=== PATIENT | female | born 2000 | race African-American/Black ===

== ENCOUNTER 2019-11-29 12:00 | Day surgery (SDC) | payer OTHER ==
[2019-11-29 12:49] VITALS: BMI 42.7
[2019-11-29 12:56] LABS: #Eosinphils 0.1 thou/uL (0.0-0.7); #Lymphocytes 1.2 thou/uL (1.20-3.40); #Monocytes 0.5 thou/uL (0.11-0.59); #Neutrophils 5.7 thou/uL (1.40-6.50); %Basophils 0.6 % (0.0-1.0); %Eosinophils 0.8 % (0.0-10.0); %Lymphocytes 16.1 % (28.0-48.0); %Monocytes 6.4 % (0.0-4.0); Hemoglobin 11.7 g/dL (12.0-16.0); Mean Corpuscular Hemoglobin 28.2 pg (25.0-35.0); Mean Corpuscular Volume 85.5 fL (78.0-98.0); Mean Platelet Volume 8.5 fL (7.4-10.4); Platelet Count 228 thou/uL (130-400); RBC Distribution Width 12.9 % (11.5-14.5); Red Blood Cell (RBC) Count 4.15 mill/uL (4.00-5.20); White Blood Cell (WBC) Count 7.5 thou/uL (4.8-10.8)
[2019-11-29 13:15] LABS: ALT (SGPT) 9 U/L (8-55); AST (SGOT) 14 U/L (5-34); Albumin 3.5 g/dL (3.5-5.0); Alkaline Phosphatase 265 U/L (40-100); Anion Gap 15 mmol/L (10-20); BUN (Urea Nitrogen) 8 mg/dL (7.0-18.7); Bilirubin, Total 0.2 mg/dL (0.2-1.2); Calc. Creatinine Clearance 292 mL/min (70-130); Calcium 9.4 mg/dL (7.8-10.44); Carbon Dioxide 17 mmol/L (22-29); Chloride 109 mmol/L (98-107); Estimated GFR-MDRD Greater than 90; Globulin 3.2 g/dL (2.4-3.5); Glucose 78 mg/dL (70-105); Potassium 4.1 mmol/L (3.5-5.1); Protein, Total 6.7 g/dL (6.0-8.3); Sodium 137 mmol/L (136-145)
--- NOTE | 2019-11-29 15:01 | PDOC.LDHP ---
Labor and Delivery H&P Allergies/Adverse Reactions: Allergies Allergy/AdvReac Type Severity Reaction Status Date / Time No Known Allergies Allergy Verified 11/29/19 12:51
[2019-11-30] MEDS ORDERED: FLU VACC QS2019-20(6MOS UP)/PF 60 MCG/0.5 ML SYRINGE IM ONE (09:00)
== END 2019-11-29 15:26 | disposition home health service (06) ==
LOC: L&D/OP 12:00
PROVIDERS: ATTEND Student in an Organized Health Care Education/Training Program
DX: O16.9 Unspecified maternal hypertension, unspecified trimester (principal); Z3A.39 39 weeks gestation of pregnancy; Z79.82 Long term (current) use of aspirin; Z79.899 Other long term (current) drug therapy
CPT/HCPCS: 36415; 80053; 82570; 84156; 85025

== ENCOUNTER 2019-11-29 15:03 | Inpatient (IN) | payer OTHER ==
[2019-11-29] MEDS ORDERED: Ibuprofen 800 MG TAB PO PRN (20:24)
[2019-11-29] MEDS ORDERED: Promethazine HCl 25 MG/ML VIAL IM PRN (20:24)
[2019-11-29] MEDS ORDERED: Lidocaine 1% (PF) 30 ML VIAL SC PRN (20:24)
[2019-11-29] MEDS ORDERED: Diphenoxylate HCl/Atropine Tablet PO PRN ×2 (20:24)
[2019-11-29] MEDS ORDERED: hydrALAZINE 20 MG/ML VIAL SLOW IVP PRN (20:24)
[2019-11-29] MEDS ORDERED: HYDROcodone/Acetaminophen 5/325 mg Tablet PO PRN ×2 (20:24)
[2019-11-29] MEDS ORDERED: NS / Oxytocin 40 units/1000ml 1,000 ML IV PRN (20:24)
[2019-11-29] MEDS ORDERED: Ondansetron PF 4 MG/2 ML Vial IVP PRN (20:24)
[2019-11-29] MEDS ORDERED: Carboprost 250 MCG/ML AMP IM PRN (20:24)
[2019-11-29] MEDS ORDERED: Misoprostol 200 MCG TAB PR PRN (20:24)
[2019-11-29] MEDS ORDERED: NS w/ Oxytocin 10 units 500 ML IV SCH (20:30)
[2019-11-29] MEDS ORDERED: Lactated Ringer's 1,000 ML IV SCH (20:30)
[2019-11-29 20:52] LABS: Hemoglobin 11.7 g/dL (12.0-16.0); Mean Corpuscular HGB CONC 32.8 g/dL (32.0-36.0); Mean Corpuscular Hemoglobin 28.1 pg (25.0-35.0); Mean Corpuscular Volume 85.7 fL (78.0-98.0); Mean Platelet Volume 8.6 fL (7.4-10.4); Platelet Count 242 thou/uL (130-400); RBC Distribution Width 12.9 % (11.5-14.5); Red Blood Cell (RBC) Count 4.15 mill/uL (4.00-5.20); White Blood Cell (WBC) Count 8.5 thou/uL (4.8-10.8)
[2019-11-29] MEDS ORDERED: Penicillin G Potassium 5 MILL.UNITS in Sodium Chloride 0.9% 100 ML IVPB SCH (21:00)
[2019-11-29] MEDS: Misoprostol 100 MCG TAB PO SCH (21:09)
[2019-11-29 21:29] LABS: Syphilis Antibody Nonreactive (Nonreactive); Syphilis Antibody Index 0.04 S/CO (<1.00 Non-Reactive)
[2019-11-29 21:33] VITALS: BMI 42.7
[2019-11-29 23:18] LABS: HBSAg Index 0.22 S/CO (0-0.99); Hep B Surf Ag Non-Reactive S/CO (NonReactive)
[2019-11-30] MEDS: Misoprostol 100 MCG TAB PO SCH ×2 (01:09→05:00)
[2019-11-30] MEDS: Pen G 2.5 MILL.UNITS/50 ML BAG IVPB SCH ×5 (01:10→17:59)
[2019-11-30] MEDS ORDERED: Butorphanol Tartrate 1 MG/ML VIAL ONE (05:27)
[2019-11-30] MEDS ORDERED: Butorphanol Tartrate 1 MG/ML VIAL SLOW IVP PRN (05:28)
[2019-11-30] MEDS ORDERED: Fentanyl 4 mcg/Bup 0.1% Cadd 100 ML ONE (13:20)
[2019-11-30] MEDS ORDERED: Fentanyl 100 MCG/2 ML VIAL ONE (14:01)
[2019-11-30] MEDS ORDERED: Ondansetron PF 4 MG/2 ML Vial IVP PRN (14:42)
[2019-11-30] MEDS ORDERED: Acetaminophen 325 MG TAB PO PRN (14:42)
[2019-11-30] MEDS ORDERED: EPHEDRINE 25 MG/5 ML SYRINGE SLOW IVP PRN (14:42)
[2019-11-30] MEDS ORDERED: diphenhydrAMINE 50 MG/ML VIAL IVP PRN (14:42)
[2019-11-30] MEDS ORDERED: Promethazine HCl 25 MG/ML VIAL IM PRN (14:42)
[2019-11-30] MEDS ORDERED: Naloxone HCl 0.4 mg/ml Vial IVP PRN ×2 (14:42)
[2019-11-30] MEDS ORDERED: Lactated Ringer's 500 ML IV PRN (14:42)
[2019-11-30] MEDS ORDERED: Communication Order-Pharmacy FS SCH (14:45)
[2019-11-30] MEDS ORDERED: Fentanyl 4 mcg/Bupivacaine 0.1% Cassette 100 ML EPIDURAL SCH (14:45)
--- NOTE | 2019-11-30 16:37 | PDOC.LDHP ---
Labor and Delivery H&P Chief complaint: scheduled induction HPI: patient is here for Elective induction of labor Current gestational age (weeks): 39 Dating criteria: first trimester ultrasound Grav: 1 Para: 0 Current complications: none Past Medical History: Obesity Current medications: pre- vitamins, other (aspirin) Previous surgical history: none Allergies/Adverse Reactions: Allergies Allergy/AdvReac Type Severity Reaction Status Date / Time No Known Allergies Allergy Verified 11/29/19 12:51 Social history: none - Physical Exam Vital signs reviewed and normal: yes General: NAD, resting Lungs: nonlabored breathing Abdomen: gravid FHT: category 1 - Vaginal Exam cm dilated: 3 Effacement: 90% Station: -1 - OB Labs Blood type: O RH: negative Antibody Screen: negative HIV: negative RPR: negative HEPSAg: negative 1 hour GCT: negative GBS: positive Urine drug screen: negative Rubella: immune - Assessment L&D Assessment: elective induction at term - Plan Plan: admit to L&D, cervical ripening, GBS antibiotic prophylaxis, informed consent obtained, anesthesia consult for pain management -: Pitocin was discontinued at 1450 due to hyperstimulation and late decels.
[2019-11-30] MEDS ORDERED: Lidocaine 1% (PF) 30 ML VIAL ONE (21:10)
--- NOTE | 2019-11-30 22:24 | PDOC.OPDEL ---
OB Operative/Delivery Note Delivery Dr/Surgeon: Light. Abraham Pre-Delivery Diagnosis: elective induction Procedure/Post Delivery Dx: spontaneous vaginal delivery Weeks gestation: 39 Anesthesia: epidural - Findings A Sex: female Weight: 7 lb 10 oz - 1 min: 8 - 5 min: 9 - Additional Findings/Plan Placenta delivered: spontaneous Repaired Obstetrical Laceration: 1st degree Estimated blood loss: 300mL Post delivery plan: routine recovery
[2019-12-01] MEDS ORDERED: Bisacodyl 10 MG SUPP PR PRN (00:22)
[2019-12-01] MEDS ORDERED: Milk Of Magnesia 30 ML UDCUP PO PRN (00:22)
[2019-12-01] MEDS ORDERED: Lanolin Ointment 7 GM TUBE TOP PRN (00:22)
[2019-12-01] MEDS ORDERED: NS / Oxytocin 40 units/1000ml 1,000 ML IV SCH (00:30)
[2019-12-01] MEDS: Misoprostol 100 MCG TAB PO SCH ×5 (00:53→13:13)
[2019-12-01] MEDS: Pen G 2.5 MILL.UNITS/50 ML BAG IVPB SCH ×4 (00:55→13:13)
[2019-12-01] MEDS: Ibuprofen 800 MG TAB PO SCH ×3 (05:35→20:54)
[2019-12-01] MEDS: Prenatal Vitamin 1 TAB PO SCH (07:52)
[2019-12-01] MEDS: Docusate Calcium (SURFAK) 240 MG CAP PO SCH ×2 (07:52→20:54)
[2019-12-01] MEDS ORDERED: Adacel (T-DAP) 0.5 ML SYRINGE IM ONE (09:00)
[2019-12-01] MEDS: Ferrous Sulfate 325 MG TAB PO SCH ×2 (09:19→16:15)
[2019-12-01] MEDS: HYDROcodone/Acetaminophen 5/325 mg Tablet PO PRN ×2 (12:14→20:54)
--- NOTE | 2019-12-01 21:39 | PDOC.PP ---
Post Progress Note Post Day #: 1 Subjective: Pt is doing well. Her back is sore. She has passed gas. the baby is spitting up a little, but other than that ok PO intake tolerated: yes Flatus: yes Ambulation: yes Vital Signs (12 hours) Temp Pulse Resp BP Pulse Ox 12/01/19 16:13 97.6 F 67 18 112/55 L 99 12/01/19 12:08 98 F 93 14 121/64 96 Weight Weight 273 lb - Physical Examination General: NAD Respiratory: non-labored breathing Abdominal: no distention Extremities: negative homans (B) Skin: no rash Neurological: no gross focal deficits Psychiatric: A&Ox3, normal affect Result Diagrams: 11/29/19 20:43 Additional Labs: Post Labs Blood Type O NEGATIVE 11/29/19 20:43 Hep Bs Antigen Non-Reactive S/CO (NonReactive) 11/29/19 20:43 (1) (spontaneous vaginal delivery) Code(s): O80 - ENCOUNTER FOR FULL-TERM UNCOMPLICATED DELIVERY Status: Acute - Assessment/Plan A: G1 now p1 s/p following elective IOL. with NML PPD #1 exam P: routine care. Plan for discharge home tomorrow
[2019-12-02] MEDS: HYDROcodone/Acetaminophen 5/325 mg Tablet PO PRN (00:57)
[2019-12-02] MEDS: Ibuprofen 800 MG TAB PO SCH (06:15)
[2019-12-02] MEDS: Prenatal Vitamin 1 TAB PO SCH (08:35)
[2019-12-02] MEDS: Docusate Calcium (SURFAK) 240 MG CAP PO SCH (08:35)
[2019-12-02] MEDS: Ferrous Sulfate 325 MG TAB PO SCH (08:35)
[2019-12-02 09:06] VITALS: BP 126/78; TEMP 98
--- NOTE | 2019-12-02 09:35 | PDOC.PP ---
Post Progress Note Post Day #: 2 Subjective: Pt is doing well. Frustrated a little since that baby is not . She has been giving bottles. PO intake tolerated: yes Flatus: yes Ambulation: yes Vital Signs (12 hours) Temp Pulse Resp BP Pulse Ox 12/02/19 07:20 98 F 74 20 126/78 100 12/02/19 00:00 97.6 F 68 18 128/68 98 Weight Weight 273 lb - Physical Examination General: NAD Cardiovascular: no m/r/g, RRR Respiratory: non-labored breathing Abdominal: no distention Extremities: negative homans (B) Skin: no rash Neurological: no gross focal deficits Psychiatric: A&Ox3, normal affect Result Diagrams: 11/29/19 20:43 Additional Labs: Post Labs Blood Type O NEGATIVE 11/29/19 20:43 Hep Bs Antigen Non-Reactive S/CO (NonReactive) 11/29/19 20:43 (1) (spontaneous vaginal delivery) Code(s): O80 - ENCOUNTER FOR FULL-TERM UNCOMPLICATED DELIVERY Status: Acute - Assessment/Plan A: G1 now P1 s/p elective IOL and with 1 degree laceration which was repaired. NML PPD2 exam. P: discharge home today pelvic rest 6 weeks PP visit at 6 weeks.
== END 2019-12-02 14:00 | disposition home or self-care (01) | DRG 807 ==
LOC: L&D 19:46 → 3SW 12-01 00:18 → EDSTATUS 12-04 13:52
PROVIDERS: ADMIT Obstetrics & Gynecology; ATTEND Obstetrics & Gynecology
PROC: 10E0XZZ Delivery of Products of Conception, External Approach (ICD-10-PCS; principal; 2019-12-01)
PROC: 0HQ9XZZ Repair Perineum Skin, External Approach (ICD-10-PCS; 2019-12-01)
DX: O99.824 Streptococcus B carrier state complicating childbirth (principal); Z37.0 Single live birth; O99.214 Obesity complicating childbirth; E66.9 Obesity, unspecified; O76 Abnormality in fetal heart rate and rhythm complicating labor and delivery; O70.0 First degree perineal laceration during delivery; Z3A.39 39 weeks gestation of pregnancy
CPT/HCPCS: 36415; 51702; 80053; 82570; 84156; 85025; 85461; 86780; 86850; 86870; 86900; 86901; 87340; 90384; 96372; 99283; J0595; J2001; J2540; J2590; J3010; J3490

== ENCOUNTER 2023-09-06 22:28 | Emergency (ER) | payer OTHER, SELFPAY ==
[2023-09-06] MEDS ORDERED: Lorazepam 1 MG TAB ONE (22:49)
== END 2023-09-06 23:27 | disposition home or self-care (01) ==
LOC: ERS 22:28
DX: K02.9 Dental caries, unspecified (principal); F41.9 Anxiety disorder, unspecified; F17.290 Nicotine dependence, other tobacco product, uncomplicated
CPT/HCPCS: 99282